=== PATIENT | female | born 2000 | race Caucasian/White ===

== ENCOUNTER 2022-08-27 15:43 | Emergency (ER) | payer BC, SELFPAY | END 2022-08-27 17:01 | disposition home or self-care (01) | LOC: NAV ERS 15:43 | DX: B34.9 Viral infection, unspecified (principal); E03.9 Hypothyroidism, unspecified; Z20.822 Contact with and (suspected) exposure to COVID-19 | CPT/HCPCS: 87081; 87430; 87804; 99283; U0003; U0005 ==